=== PATIENT | female | born 1950 | race Caucasian/White ===

== ENCOUNTER 2019-06-03 16:37 | Emergency (ER) | payer MEDICARE, OTHER, SELFPAY ==
[2019-06-03 16:37] VITALS: BP 127/81; PULSE 117; RESP 16; TEMP 37.1; O2SAT 97; BMI 33.0
[2019-06-03 17:52] LABS: Absolute Lymphocyte Count 0.35 X10^3/uL (0.83-4.51); Absolute Neutrophil Count 7.7 X10^3/uL (2.0-7.7); Basophil# 0.01 X10^3/uL; Basophil% 0.1 % (0-1); Eosinophil# 0.01 X10^3/uL; Eosinophils% 0.1 % (0-5); Hematocrit 45.2 % (37-47); Hemoglobin 15.3 g/dL (12.0-15.0); Lymphocyte # 0.35 X10^3/ul (4.0); Lymphocyte % 4.1 % (19-41); Mean Corp Hgb Conc 33.8 g/dL (32-36); Mean Corpuscular Hgb 29.6 pg (27.0-32.0); Mean Corpuscular Volume 87.4 fL (81-99); Mean Platelet Vol. 10.3 fl (6.2-12.0); Monocyte# 0.53 X10^3/uL; Monocyte% 6.2 % (0-10); NRBC Flagged by Analyzer 0 % (0-5); Neutrophil # 7.66 X10^3/uL (2.7-7.7); POSITIVE DIFFERENTIAL YES; Platelet Count 179 K/mm3 (150-450); RBC Distribution Width CV 12.7 % (11.6-14.6); RBC Distribution Width SD 40.7 fl (35.1-43.9); Red Blood Count 5.17 M/mm3 (4.2-5.4); White Blood Count 8.6 K/mm3 (4.4-11.0)
[2019-06-03 18:09] LABS: Anion Gap 9 (5-15); BUN 24 mg/dL (7-18); BUN/Creat Ratio 24.6 RATIO (10-20); Calcium,Total 8.9 mg/dL (8.5-10.1); Chloride 108 mmol/L (98-107); Creatinine, Serum 0.97 mg/dL (0.55-1.02); EST Glomerular Filtration Rate 60 mL/min (>60); Est Glom Filt Rate - Afr Amer 73 mL/min (>60); Estimated Creatinine Clearance 64.03 ml/min; Glucose 129 mg/dL (74-106); Potassium 3.4 mmol/L (3.5-5.1); Sodium Level 142 mmol/L (136-145)
[2019-06-03 18:14] LABS: Differential Indicated SCAN CRITERIA MET
[2019-06-03 18:21] LABS: Anisocytosis RARE; Platelet Estimate ADEQUATE (ADEQ); Red Cell Morphology NORM C+C NORMAL (NORM C&C)
[2019-06-03] MEDS: 0.9% Normal Saline 1,000 ML 1000 ML IV (18:39)
[2019-06-03] MEDS: proMETHazine 25 MG/ML Syringe 6.25 MG IV (18:39)
[2019-06-03 19:00] VITALS: BP 214/72; RESP 16
[2019-06-03 19:45] LABS: Bacteria 0 SEEN /hpf (None Seen)
[2019-06-03 19:47] LABS: Color, Urine Yellow (Yellow); Glucose, Dipstick Normal (Normal); Ketone-Dipstick 5 mg/dl (Negative); Leukocyte Esterase-Dipstick 25 /ul (Negative); Nitrite-Dipstick Negative (Negative); Occult Blood-Urine 250 /ul (Negative); Protein-Dipstick 30 mg/dl (Negative); Specific Gravity, Urine 1.025 (1.002-1.030); Urine Bilirubin Dipstick Negative (Negative); Urine Clarity Clear (Clear); Urine Urobilinogen Normal (Normal)
[2019-06-03 19:54] LABS: Squamous Epithelial Cells - UA 0-5 SEEN /hpf (5-10)
[2019-06-03 19:55] LABS: Mucous, Urine RARE /hpf (<or=2+); White Blood Cells 0-5 SEEN /hpf (0-5)
[2019-06-03 19:57] LABS: Red Blood Cells-Urine 10-25 SEEN /hpf (0-5)
--- NOTE | 2019-06-03 20:47 | ED.VISSUMM ---
- ER Visit Summary Date of Service: 06/03/19 Chief Complaint: Nausea, vomiting, diarrhea History of Present Illness: The patient is a 68 F who presents with nausea, vomiting, and diarrhea that began yesterday. Patient states her nausea and vomiting is worse whenever she tries to drink anything. Patient denies any abdominal pain. Patient denies any hematemesis or coffee-ground emesis. Patient states her diarrhea is watery. Patient denies any melena or hematochezia. Patient denies any dysuria or hematuria. Patient denies any fevers but admits to subjective chills. Patient also admits to recent rhinorrhea. Physical Examination: Vital signs are stable. Patient is afebrile. Patient is in no acute distress. Oral mucosa is pink and moist. Neck is supple. Trachea is midline. There is no JVD. Heart was regular rate and rhythm. Lungs were clear and equal bilaterally. Abdomen is soft. There is mild diffuse tenderness. There is no rebound or guarding noted. Cranial nerves II through XII are intact. There are no focal motor or sensory deficits noted. Test Results: CBC was within normal limits. Basic metabolic profile shows slightly elevated BUN of 24. Urinalysis does not show any evidence of urinary tract infection. Emergency Department Course and Treatment: Patient was given IV fluids and Phenergan here. Patient felt better on reevaluation. Patient was given a prescription for Phenergan. Patient was instructed to start with a liquid diet and advance as tolerated. Patient was instructed to follow-up with her primary care physician in 5 to 7 days. Patient and her understood and were agreeable with the plan. All questions were answered. Disposition: Discharge home Impression: Nausea vomiting and diarrhea This note was generated with [employer] dictation software. It may contain incorrect words, spelling, and punctuation that were not noted in review of the chart prior to signing ED Disposition - Plan for ED Patient: Disposition: Home or Assisted Living Diagnosis: Nausea vomiting and diarrhea Instructions: VOMITING AND DIARRHEA, Nonspecific (Adult) Prescriptions: proMETHazine suppository [Phenergan Suppository] 25 mg RECTAL Q6H PRN PRN #6 suppos. PRN Reason: Nausea Prescription Printed Referrals: Jan Bal DO [Primary Care Provider] -
[2019-06-03 21:00] VITALS: BP 131/71; PULSE 88; RESP 16; O2SAT 99
== END 2019-06-03 21:05 | disposition home or self-care (01) ==
PROVIDERS: Emergency Provider Emergency Medicine; Family Provider Student in an Organized Health Care Education/Training Program; PCP Student in an Organized Health Care Education/Training Program
DX: R11.2 Nausea with vomiting, unspecified (principal); R19.7 Diarrhea, unspecified
CPT/HCPCS: 80048; 81001; 85025; 96361; 96374; 99283; J7030; A4216

== ENCOUNTER → 2021-02-27 11:44 | Outpatient (CLI) | payer MEDICARE, OTHER, SELFPAY ==
--- NOTE | 2021-02-27 | IMM_PTH ---
PATIENT: KATHY DILLARD LOC: [facility] U#:[id number] AGE/SX: 74/F ROOM: RE02/27/[address]: Dr. Clemente Buchanan MD : 1950 BED: DIS: SPEC #: [id number] RECD: 02/28/21 12:32 STATUS: DIOGENES REQ #: [id number] YARI: 02/27/21 00:[address]: Clemente Buchanan DEPT: IMMUNOHISTOCHEMISTRY RECD BY: Porsche Monsivais ENTERED: 02/28/21 12:34 SP TYPE: IMMUNO OTHR DR: Dr. Jan Bal DO Tissues: Right breast, NOS Procedures: CALPONIN-1 (add) CK5-6 (add) CK8 (add) LEONARDO-2 (add) E-CAD (add) HER2 VALERIA (add) KI-67 (add) P53 (add) WV (add) P40 (add) ER (initial) PHYSICIAN & INSTITUTION [facility] [phone] SPECIMEN INFORMATION: Tissue Source: Right breast, stereotactic core biopsy Clinical Info: Grouped punctate calcifications in right breast upper outer aspect Specimen Number: [id number] #2 CPT code: 03397, 67565 x7, 08787 x3 METHODOLOGY: Deparaffinized sections of prefer/formalin-fixed tissue or PAP/DQ stained slides are incubated with monoclonal/polyclonal antibodies/oligonucleotide probes. Localization is made via biotin free immunoperoxidase method. Appropriate controls are performed and reacted as expected. Results on target cell population are indicated in the following table: RESULTS: ANTIBODY / CLONE RESULT Block 2 P53 (DO-7) negative Ki-67 (30-9) negative CK8 (89bvbgP66) positive CK5-6 (D5 & 1684) negative Calponin-1 (YX944X) negative P40 (BC28) negative E-Cad (ECH-6) negative LEONARDO-2 (SP21) positive, dim MORPHOMETRIC ANALYSIS ER (clone 6F11) >95%, moderate intensity WV (clone 16/1E2) 2%, dim intensity Her-2Neu (clone CB11) 0 The prognostic test for HER2 is performed on formalin-fixed paraffin embedded tissue. A 3+ (positive) staining pattern is defined as intense, homogeneous, complete, circumferential membranous staining in >10% of contiguous tumor cells. A similar weak (2+) staining pattern is interpreted as equivocal. LEE follow-up testing is recommended for all equivocal cases. Positivity/negativity for ER/WV is reported if > or < 1% of the tumor cells are immuno- reactive, respectively. The ASCO/CAP criteria is used for scoring. Reference: Journal of Clinical Oncology, 2013; 31:0057-1937 & 2010; 16:8769-6391. Duration of fixation: 7 Hrs; Sample Adequate: Yes. These assays have not been validated on decalcified tissues. Results should be interpreted with caution given the likelihood of false negativity on decalcified specimens. These tests were developed and their performance characteristics determined by [facility]. They may not have been cleared or approved by the U.S. Food and Drug Administration. The FDA has determined that such clearance or approval is not necessary. The above immunohistochemical/dualISH markers are ordered and reviewed by the Pathologist. INTERPRETATION: Right breast, stereotactic core biopsy: Invasive lobular carcinoma, nuclear grade 1. Lobular carcinoma in situ. Positive for estrogen receptors (favorable prognostic indicator). Positive for progesterone receptors (favorable prognostic indicator). Negative for overexpression of HRK6koj. AM:ericka 03/03/2021
--- NOTE | 2021-02-27 12:12 | HP.PCM_ITS ---
History and Physical Date of Admission: 02/27/21 HISTORY AND PHYSICAL - BREAST COMPLAINT ? Jacquie Millan [place] 1950 ? ? REFERRING PHYSICIAN: Self ? CHIEF COMPLAINT: Mammographic microcalcification found on diagnostic imaging of breast (primary encounter diagnosis) ? HPI: The patient is a 70 year old female with a complaint of an abnormal mammogram. The patient had a mammogram with ultrasound on 01/16/21 which demonstrated Birads 3: ? ? The patient denies a history of breast masses. She does perform a self breast exam routinely. She notes no skin changes. She denies nipple discharge. She notes no axillary masses. She notes no family history of breast problems. She notes no significant breast trauma or breast difficulties in the past. ? ? ? PAST MEDICAL HISTORY PAST MEDICAL HISTORY Diagnosis Date ? Anxiety ? ? Hypertension ? ? Other forms of migraine ? ? Other malignant neoplasm of skin, site unspecified ? ? Non-melanoma skin cancer ? Unspecified disorder of lipoid metabolism ? ? Lipoid metab disorder ? ? PAST SURGICAL HISTORY PAST SURGICAL HISTORY Procedure Laterality Date ? LIGATE FALLOPIAN TUBE ? 1979 ? Tubal ligation ? PAST SURGICAL HISTORY OF ? 02/08 ? skin ca lesion removed from rt. upper cheek ? PAST SURGICAL HISTORY OF ? 04/2004 ? SUPRAPUBIC CATH after Bladder Repair-reversed ? PAST SURGICAL HISTORY OF ? April 2004 ? Bladder Repair (for Prolapsed Bladder) ? VAGINAL HYSTERECTOMY ? April 2004 ? ? ? CURRENT MEDICATIONS Current Outpatient Medications Medication Sig Dispense Refill ? cetirizine (ZYRTEC) 10 mg tablet Take 10 mg by mouth once daily. ? ? ? lidocaine viscous (LIDOCAINE VISCOUS) 2 % solution Take 5 mL by mouth as needed. 100 mL 0 ? citalopram hydrobromide (CELEXA) 10 mg tablet Take 0.5 tablets by mouth once daily. 45 tablet 1 ? metoprolol succinate ER (TOPROL XL) 25 mg 24 hr tablet Take 1 tablet by mouth once daily. 90 tablet 3 ? famotidine (PEPCID) 20 mg tablet Take 1 tablet by mouth twice daily. 180 tablet 2 ? rosuvastatin (CRESTOR) 20 mg tablet Take 1 tablet by mouth daily at bedtime. 90 tablet 3 ? B-complex with vitamin C (VITAMIN B COMPLEX-C ORAL) Take by mouth. ? ? ? VITAMIN B COMPLEX-100 ORAL Take 1 mL by mouth once daily. ? ? ? KRILL OIL ORAL Take 1 capsule by mouth once daily. ? ? ? fluticasone (FLONASE) 50 mcg/actuation nasal spray INSTILL 2 SPRAYS IN EACH NOSTRIL ONCE DAILY. RINSE MOUTH AFTER USE 16 g 0 ? predniSONE (DELTASONE) 10 mg tablet Take 40 mg x 3 days, 20 mg x 3 days, 10 mg x 3 days. Take with food, once daily 21 tablet 0 ? methocarbamol (ROBAXIN-750) 750 mg tablet Take 1 tablet by mouth twice daily as needed. 20 tablet 0 ? fexofenadine (JOCE) 180 mg ORAL Tab Take one(1) tablet daily. ? 0 ? No current facility-administered medications for this visit. ? ? ALLERGIES: Alleve [Naproxen], Meloxicam, Other, and Sulfa (Sulfonamide Antibiotics) ? PERSONAL HISTORY: SOCIAL HISTORY Social History ? Tobacco Use ? Smoking status: Never Smoker ? Smokeless tobacco: Never Used Vaping Use ? Vaping Use: Never used Substance Use Topics ? Alcohol use: No ? Drug use: No ? FAMILY HISTORY: FAMILY HISTORY FAMILY HISTORY Problem Relation Age of Onset ? Cancer Mother ? ? lymphoma PASSED FROM THIS ? Heart Father 61 ? ? Lipids Sister ? ? Lipids Sister ? ? Heart Sister 75 ? heart attack ? Heart Brother ? ? Open Heart Surgery: Triple Bypass; Four Myocardial Infarctions ? Lipids Brother ? ? SAME ABOVE WITH THE HEART ? ? REVIEW OF SYMPTOMS: The review of systems data was entered by the nurse and reviewed by me ? Nursing Notes: Dany Mckeon LPN 02/21/2021 9:57 AM Signed REVIEW OF SYSTEMS: General: The patient denies fatigue, denies weight loss, denies weight gain, denies feeling hot, and denies feelings of cold. Eyes: The patient denies glaucoma, denies eye injury/surgery, does not wear glasses or contacts. Ear/Nose/Throat: The patient NOTES allergies, denies hayfever, denies ear infections, and denies bloody noses. Cardiovascular: The patient denies chest pain, denies heart disease, NOTES high blood pressure,denies cardiac stent, denies prior heart attack, NOTES irregular heart beat, NOTES high cholesterol, denies poor circulation, denies heart failure, other cardiac issues, denies claudication, denies cold feet, denies peripheral arterial stent. Respiratory: The patient denies tuberculosis, denies pneumonia, denies frequent cough, denies pulmonary embolism, denies shortness of breath, and denies coughing up blood. Gastrointestinal: The patient denies difficulty swallowing, denies acid reflux, denies ulcers, denies vomiting, denies jaundice/hepatitis, denies gallbladder problems, denies black or tarry stools, denies hemorrhoids, denies bleeding from rectum, denies diverticulitis, denies constipation, denies diarrhea, denies loss of stool control, and denies hernias. Kidney/Bladder: The patient denies kidney stones, denies urine infections, and denies bloody urine. Skin: The patient NOTES a history of skin cancer, denies bleeding/changing moles, and denies a history of skin rash. Neurologic: The patient denies a history of epilepsy/convulsions, NOTES headaches, denies head/spinal injuries, and denies stroke/TIA. Psychiatric: The patient denies psychiatric medications, denies depression, and denies voices, denies substance abuse. Endocrine: The patient denies thyroid disorders, denies diabetes, and denies hormonal problems. Hematologic: The patient denies a history of bruising, denies bleeding, and denies anemia, denies blood clots. Infections: The patient denies a history of measles and mumps, denies rheumatic fever, and denies sexually transmitted diseases. Musculoskeletal: The patient denies back pain/injury, denies back problems, denies sciatica, denies knee/foot trouble, denies arthritis, or denies gout. ? ? When was patient's last Mammogram screening? N/A ? Last Colonoscopy: 09/2008 ? Dany Mckeon LPN ? PHYSICAL EXAMINATION: ? General: The patient is 70 year old female, well nourished, well hydrated in no acute distress. The patient is oriented to time, place, and person. ? VITALS: Pulse 72, temperature 37.1 ?C (98.8 ?F), height 149.9 cm (4' 11), weight 72.8 kg (160 lb 9.6 oz), SpO2 97 %. Body mass index is 32.44 kg/m?. ? HEENT: Normal cephalic, ataumatic, pupils are equally round, sclera are anicteric, mucous membranes are moist, oropharynx is clear. Neck has no masses, asymmetry or lymphadenopathy. Thyroid is unremarkable. ? Respiratory: Clear to auscultation and percussion. Normal respiratory excursion and pattern. ? Cardiac: Examination is regular rate and rhythm. ? Abdominal exam: Soft, nontender, with no palpable masses. No hepatos plenomegaly. No palpable hernias. ? Rectal exam: exam deferred Extremities: no clubbing, cyanosis or edema. No adenopathy. ? Breast: Visual inspection reveals no retractions, nipple inversion, or skin changes. Palpation of the right breast reveals no dominant or suspicious masses, but multiple benign-feeling nodules. Palpation of the left breast reveals no dominant or suspicious masses, but multiple benign-feeling nodules. Axillary exam demonstrates no suspicious masses in either the left or right axilla. There is no nipple discharge expressed from either the left or right breast. ? LABORATORY VALUES: As Noted ? RADIOLOGIC STUDIES: As Noted ? Assessment IMPRESSION: Mammographic microcalcification found on diagnostic imaging of breast (primary encounter diagnosis) ? PLAN: I plan to perform a stereotactic biopsy of the right breast. The planned surgical procedure was discussed extensively with the patient. The risks, benefits, anticipated outcomes and possible complications were mentioned. My staff has also explained the procedure in understandable terms and the patient was given the option to take printed material concerning the planned procedure. The patient had the opportunity to ask questions concerning the planned procedure. The patient freely consents to the planned procedure. ? ? Diagnoses: (R92.0) Mammographic microcalcification found on diagnostic imaging of breast (primary encounter diagnosis) ? My findings have been communicated to Dr. Jan Bal DO via shared medical record. This note will be forwarded to Dr. Jan Bal DO. ? Return to Clinic: The patient is instructed to follow-up with me 1 week post operatively. ? COVID (Procedure Consent) Procedure Criteria ? Procedure Criteria: Yes Elective The surgeon/proceduralist and patient have discussed in detail the risk of exposure to and/or potential harm posed by the COVID-19 virus with having a surgery/procedure at this time versus the risk of? delaying the surgery/procedure. It is not possible to know either the risk of delaying the surgery or procedure or chance of getting an infection with perfect accuracy, but a joint decision was made between the patient and the surgeon/proceduralist ?to proceed at this time with the scheduled surgery/procedure as indicated on the consent form. ? ? Clemente Buchanan III, MD I have re-examined the patient. There are no clinical changes since date of exam.
--- NOTE | 2021-02-27 12:30 | BRBX_PTH ---
PATIENT: KATHY DILLARD LOC: [facility] U#:[id number] AGE/SX: 74/F ROOM: RE02/27/[address]: Dr. Clemente Buchanan MD : 1950 BED: DIS: SPEC #: [id number] RECD: 02/27/21 13:26 STATUS: DIOGENES RESascha #: [id number] YARI: 02/27/21 12:[address]: Clemente Buchanan DEPT: SURGICAL PATHOLOGY RECD BY: Reny Liang ENTERED: 02/27/21 13:36 SP TYPE: BREAST BX OTHR DR: Dr. Jan Bal DO Tissues: Right breast, NOS Procedures: Surgery Specimen Level IV HEADER OPERATION: Right breast stereotactic biopsy PRE-OP DIAGNOSIS: Grouped punctate calcifications in right breast upper outer aspect TISSUE SUBMITTED: Right breast core tissue ISCHEMIC TIME: 1 minute FIXATION TIME: 7 hours MICROSCOPIC DIAGNOSIS Right breast, core biopsy: Invasive lobular carcinoma with the following characteristics: Maximal length ? 1 millimeter Nuclear grade ? 1/3 Other findings ? extensive lobular carcinoma in situ with associated microcalcifications, focal fibrocystic change with associated microcalcifications. See comment. AM:ericka 02/28/2021 COMMENT ER/IN/Pwb0tor studies are being performed on sections of tumor and the results from this study will be reported separately ([id number]). Case has been reviewed in consultation with Dr. Pool who concurs with the above diagnosis. IDC:SJ MICROSCOPIC DESCRIPTION Slides are reviewed. GROSS DESCRIPTION Received in fixative is one container labeled with the patient's name and designated right. The specimen consists of multiple elongated fragments of tineo-yellow fibroadipose tissue that in aggregate measure 5 x 3 x 0.6 cm. The entire specimen is submitted in four cassettes. / QUIQUE:ericka 02/27/21 TC:0 CPT: 96046
--- NOTE | 2021-02-27 14:07 | OP.PCM_ITS ---
Problems Associated Problem List Diagnoses (1) Microcalcifications of the breast: Report of Operation Date of Procedure: 02/27/21 Pre-Operative Diagnosis: Microcalcifications right breast Post-Operative Diagnosis: Same Surgery/Procedure Performed:: Right stereotactic breast biopsy Surgeon: Clemente Buchanan Type of Anesthesia: Local Estimated Blood Loss (mL): < 25 cc Description of Procedure: Patient was brought into the mammography unit placed in the prone position on the table right breast was brought down through opening. A cc view was obtained. Microcalcifications were identified. ?15 degree views were obtained. Microcalcifications were targeted on. Breast was prepped with Betadine. 1% lidocaine plain was injected. A skin deandra was made. Needle was placed in the prefire position. 2 more stereo views were obtained. Needle was fired. 360 degree circumferential biopsies were performed. X-rayed the specimen. Microcalcifications were present. Back the needle off 7 mm. A small Gelfoam titanium clip was placed. Needle was removed. Breast was x- rayed. Clip was in good placement. Patient was taken out of the machine. Steri-Strips were applied. Sterile dressings were applied. Standard mammogram was obtained. Admit VTE Documentation VTE Present on Admission: No VTE Mechan Device Prophylaxis: None VTE Pharm Prophylaxis ordered?: No Reason prophylaxis not ordered:: Treatment Not Indicated
== END ==
PROVIDERS: PCP Student in an Organized Health Care Education/Training Program; Referring Provider Surgery; Visit Provider Surgery
DX: C50.411 Malignant neoplasm of upper-outer quadrant of right female breast (principal); Z17.0 Estrogen receptor positive status [ER+]; I10 Essential (primary) hypertension; Z79.899 Other long term (current) drug therapy
CPT/HCPCS: 19081; 88305; 88341; 88342; J7050; A4648

== ENCOUNTER 2024-11-02 12:57 | Emergency (ER) | payer MEDICARE, OTHER, SELFPAY ==
[2024-11-02 12:57] VITALS: BP 140/61; PULSE 81; RESP 14; TEMP 36.2; O2SAT 97; BMI 29.8
--- NOTE | 2024-11-02 13:42 | VDLE_ITS ---
Reason For Study Reason For Study: Elevated D-dimer RIGHT LEFT GSV is normal. GSV is normal. CFV is compressible, spontaneous, phasic, competent CFV is compressible, spontaneous, phasic, competent, and demonstrates normal augmentation. and demonstrates normal augmentation. FV is compressible, spontaneous, phasic, competent FV is compressible, spontaneous, phasic, competent and demonstrates normal augmentation. and demonstrates normal augmentation. POP V is compressible, spontaneous, phasic, competent POP V is compressible, spontaneous, phasic, competent and demonstrates normal augmentation. and demonstrates normal augmentation. T/P Trunk is compressible. T/P Trunk is compressible. PTV is compressible. PTV is compressible. RT PerV is compressible. LT PerV is compressible. Procedure This is a venous duplex using B-mode, color flow and spectral Doppler. Exam performed portable in ED. A preliminary report was called and/or faxed to Dr. Cagle. VL/Venous Duplex US - [place]ell Extrem Interpretation Summary Deep veins of the lower extremities are bilaterally patent and compressible seg mentally. There is no evidence of deep vein thrombosis on either side. Valvular competence appears intact within the p roximal deep venous systems bilaterally. The great saphenous veins appear bilaterally patent and compressible segmentall y. Ordering Physician: Chiki Cagle Referring Physician: Jan Bal Performed By: Mary Carmen Watson RVT
--- NOTE | 2024-11-02 13:42 | CT_ITS ---
PROCEDURE: CTA CHEST W/WO CONTRAST 11/02/2024 REASON FOR EXAM: ELEVATED DIMER History of breast cancer. TECHNIQUE: CTA axial imaging of the chest with intravenous contrast. Multiplanar and multisequence images were obtained. PATIENT PREPARATION: Per protocol One or more dose reduction techniques were used (e.g., Automated exposure control, adjustment of the mA and/or kV according to patient size, use of iterative reconstruction technique). CONTRAST: Isovue 3 7 VOLUME: 100 mL RADIATION DOSE SUMMARY: CTDlvol: 10.5 mGy DLP: 321.89 mGycm COMPARISON: None FINDINGS: Hardware: None Lymph nodes: No significant lymph nodes are seen. Heart: Minimal right-sided pericardial thickening. Thoracic Aorta: No thoracic aortic aneurysm or dissection. Pulmonary Vessels: No evidence of acute pulmonary emboli through the major subsegmental branches. Lungs and Airways: Mild dependent atelectasis. Pleura: No pleural effusion Upper Abdomen: Visualized portions of the upper abdominal viscera are unremarkable. Bones: Degenerative changes of the thoracic spine. 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 Metastasis should be ruled out. CT/CTA Chest W/WO Contrast IMPRESSION: No evidence of pulmonary embolism. Reading Location: [facility]
[2024-11-02] MEDS: 0.9% Normal Saline (1000mL) 1,000 ML 1000 ML IV (13:52)
[2024-11-02 13:59] LABS: Absolute Lymphocyte Count 1.58 X10^3/uL (0.83-4.51); Absolute Neutrophil Count 4.2 X10^3/uL (2.0-7.7); Basophil# 0.03 X10^3/uL; Basophil% 0.5 % (0-1); Eosinophil# 0.24 X10^3/uL; Eosinophils% 3.7 % (0-5); Hematocrit 38.1 % (37-47); Hemoglobin 13.1 g/dL (12.0-15.0); Lymphocyte # 1.58 X10^3/ul (0.83-4.51); Lymphocyte % 24.6 % (19-41); Mean Corp Hgb Conc 34.4 g/dL (32-36); Mean Corpuscular Hgb 29.7 pg (27.0-32.0); Mean Corpuscular Volume 86.4 fL (81-99); Mean Platelet Vol. 10.4 fl (6.2-12.0); Monocyte# 0.37 X10^3/uL; Monocyte% 5.8 % (0-10); NRBC Flagged by Analyzer 0 % (0-5); Neutrophil # 4.18 X10^3/uL (2.7-7.7); Neutrophil % 65.2 % (47-70); Platelet Count 179 K/mm3 (150-450); RBC Distribution Width CV 12.9 % (11.6-14.6); RBC Distribution Width SD 40.3 fl (35.1-43.9); Red Blood Count 4.41 M/mm3 (4.2-5.4); White Blood Count 6.4 K/mm3 (4.4-11.0)
--- NOTE | 2024-11-02 14:48 | EDS_ITS ---
HPI History of Present Illness Chief Complaint: Abn Labs Narrative Narrative: Chief complaint and HPI: Elevated D-dimer. 74-year-old female with past medical history of HTN and previous treated breast cancer presents for evaluation of elevated D-dimer. History taken by patient as well as office PCP note. Patient states that for the past several weeks she has been suffering from nasal congestion/URI type symptoms. States she was diagnosed recently with a sinus infection in which she was treated with amoxicillin and a 7-day course of steroids. She states her symptoms have improved. She states however she occasionally feels fatigued with shortness of breath. She had some diarrhea over the weekend which she thinks was secondary to the antibiotics. She followed up with her PCP given her symptoms and states laboratory workup was ordered including chest x-ray. She states she was called today by PCPs office stating that her D-dimer was elevated and that she needed to come to the emergency department to rule out blood clot. She currently denies any fever, chills, shortness of breath, chest pain abdominal pain, nausea, vomiting, diarrhea, dysuria. Denies any bilateral lower extremity pain or swelling. States this is the best she has felt in a while. Review of systems: See HPI Medications: As listed on the chart Allergies: As listed on the chart PFSH: Per chart Vital signs: As listed on the chart. Reviewed. Physical exam: Gen: A&O x3, NAD Head: Normocephalic, atraumatic Eyes: No sclera icterus, conjunctiva clear ENT: Moist mucous membranes Neck: Trachea midline, No JVD CV: RRR, no murmurs, no peripheral edema Resp: Lungs CTA BL, no w/r/c GI: Abd soft, non-distended, non-tender, no r/r/g Musc: Full ROM, no deformity Skin: Warm, dry Neuro: Alert, oriented, grossly intact, sensation intact Psych: Cooperative, appropriate mood and affect [facility] Medical History (Updated 11/02/24 @ 16:[address] Chiki Cagle, ) Breast cancer Home Medications ?Medication ?Instructions ?Recorded ?Last Taken ?Type cetirizine 10 mg chewable tablet 10 mg PO QHS PRN Itch ing 06/03/19 Unknown History fexofenadine 180 mg tablet 180 mg PO DAILY 06/03/19 Un known History hydroxyzine HCl 25 mg tablet 25 mg PO Q6H PRN Anxiety 06/03/19 Unknown History ibuprofen 800 mg tablet 800 mg PO Q8H PRN Pain Or Fe matilde 06/03/19 Unknown History montelukast 10 mg tablet 10 mg PO DAILY 06/03/19 Unkn own History promethazine 25 mg rectal 25 mg RECTAL Q6H PRN PRN [place] ##6 06/03/19 Unknown Rx suppository sertraline 50 mg tablet 75 mg PO DAILY 06/03/19 Unkn own History Allergy/AdvReac Type Severity Reaction Status Date / Time Sulfa (Sulfonamide Allergy Rash Verified 11/02/24 12:58 Antibiotics) ondansetron (From Zofran) AdvReac Other Verified 11/02/24 12:58 Surgical History (Updated 11/02/24 @ 13:58 by Lillie Flores) H/O mastectomy Social History Smoking Status: Never smoker EXAM Physical Exam Const Vital Signs: 11/02/24 12:57 11/02/24 13:57 11/02/24 14:57 Temperature 97.1 F L Temperature Source Temporal Pulse Rate 81 68 Respiratory Rate 14 17 Respiratory Effort Normal Respiratory Pattern Normal Blood Pressure 140/61 H 96/76 Blood Pressure Mean 87 82 Pulse Ox 97 97 Oxygen Delivery Method Room Air Room Air 11/02/24 16:02 Temperature 98.2 F Temperature Source Pulse Rate 67 Respiratory Rate 13 Respiratory Effort Respiratory Pattern Blood Pressure 113/67 Blood Pressure Mean 82 Pulse Ox 98 Oxygen Delivery Method MDM MDM MDM Narrative Medical decision making narrative: 74-year-old female with past medical history of HTN and previous treated breast cancer presents for evaluation of elevated D-dimer. States she was told to come here by PCP to rule out blood clot. History taken by patient as well as office PCP note. Patient recently treated for a sinus infection. Saw PCP for intermittent fatigue and shortness of breath. I reviewed the PCP note which the patient had printed out with her. Given her symptoms she had CBC, CMP, magnesium, COVID, flu, RSV testing, magnesium level, and chest x-ray obtained. CBC unremarkable. CMP unremarkable except for mild hypokalemia of 3.4. COVID, flu, RSV negative. Magnesium level was unremarkable. D-dimer elevated at 860. Chest x-ray report that was printed out shows no acute process. Patient is currently asymptomatic. Differential diagnosis includes but is not limited to elevated D-dimer from recent sinus infection, DVT, PE. Suspect less likely pneumonia given she had unremarkable chest x-ray. Will repeat basic labs as well as obtain venous Doppler ultrasounds of the bilateral lower extremities and CTA chest. I do not think any further workup is needed at this time as patient has no other complaints and is here for DVT/PE rule out. NS bolus given for contrast load for CT chest. CBC and BMP unremarkable. Bilateral venous duplex ultrasounds negative for DVT. CTA chest negative for PE. No pneumonia. Patient has degenerative changes of the thoracic spine. 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 Metastasis should be ruled out. On reevaluation, patient has remained asymptomatic. Her vitals are stable. Patient stable to discharge home. 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 PCP office was contacted and updated of the findings. Impression: 1. Elevated D-dimer, rule out PE and DVT 2. 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, metastasis should be ruled out, needs followed up outpatient with PCP Lab Data Labs: Laboratory Results - last 24 hr 11/02/24 13:46 WBC 6.4 RBC 4.41 Hgb 13.1 Hct 38.1 MCV 86.4 MCH 29.7 MCHC 34.4 RDW Std Deviation 40.3 RDW Coeff of Philipp 12.9 Plt Count 179 MPV 10.4 Immature Gran % (Auto) 0.200 Neut % (Auto) 65.2 Lymph % (Auto) 24.6 Frio % (Auto) 5.8 Eos % (Auto) 3.7 Baso % (Auto) 0.5 Absolute Neuts (auto) 4.2 Absolute Lymphs (auto) 1.58 Nucleated RBC % 0 Sodium 141 Potassium 3.7 Chloride 106 Carbon Dioxide 23.3 Anion Gap 12 BUN 18 Creatinine 0.90 Estim Creat Clear Calc 46.16 L Est GFR (MDRD) Non-Af 66 BUN/Creatinine Ratio 19.6 Glucose 120 H Calcium 9.1 Radiography Diagnostic Testing: Clinical Impression(s) from Imaging Studies Chest CTA 11/02/24 13:42 IMPRESSION: No evidence of pulmonary embolism. Reading Location: [facility] Discharge Plan Triage Chief Complaint: Abn Labs ED Provider: Chiki Cagle Dx/Rx/DC Orders Clinical Impression: D-dimer, elevated, Fatigue Instructions: ED Weakness Uncertain Cause Prescriptions: No Action ibuprofen 800 MG tablet 800 mg PO Q8H PRN (Reason: Pain Or Fever) fexofenadine 180 MG tablet 180 mg PO DAILY montelukast 10 MG tablet 10 mg PO DAILY hydroxyzine HCl 25 MG tablet 25 mg PO Q6H PRN (Reason: Anxiety) sertraline 50 MG tablet 75 mg PO DAILY cetirizine 10 MG tablet,chewable 10 mg PO QHS PRN (Reason: Itching) promethazine 25 MG suppository 25 mg RECTAL Q6H PRN PRN (Reason: Nausea) Qty: 6 0RF Primary Care Provider: Jan Bal Referrals: Jan Bal DO [Primary Care Provider] - 3-5 Days Activity Restrictions/Additional Instructions: Follow-up with primary care physician. Your potassium was normal here in the emergency department at 3.7. No clear reason for your fatigue follow-up with your doctor. No clear reason for your elevated D-dimer. Print Language: Swiss Disposition Disposition: Home, Self Care Discharge Date/Time: 11/02/24 16:17
[2024-11-02 14:57] VITALS: BP 96/76; PULSE 68; RESP 17; O2SAT 97
[2024-11-02 15:17] LABS: Anion Gap 12 (5-15); BUN 18 mg/dL (4-19); BUN/Creat Ratio 19.6 RATIO (10-20); Calcium,Total 9.1 mg/dL (7.6-11.0); Carbon Dioxide 23.3 mmol/L (21.0-32.0); Chloride 106 mmol/L (98-108); EST Glomerular Filtration Rate 66 (>60); Estimated Creatinine Clearance 46.16 ml/min (50-250); Glucose 120 mg/dL (70-99); Potassium 3.7 mmol/L (3.3-5.1); Sodium Level 141 mmol/L (133-145)
[2024-11-02 16:02] VITALS: BP 113/67; PULSE 67; RESP 13; TEMP 36.8; O2SAT 98
== END 2024-11-02 16:17 | disposition home or self-care (01) ==
PROVIDERS: Emergency Provider Surgery; PCP Student in an Organized Health Care Education/Training Program; Referring Provider Surgery; Visit Provider Surgery
DX: R79.89 Other specified abnormal findings of blood chemistry (principal); R53.83 Other fatigue; R06.02 Shortness of breath
CPT/HCPCS: 71275; 80048; 85025; 93970; 96360; 96361; 99284; Q9967; A4216